=== PATIENT | female | born 1985 | race Caucasian/White ===

== ENCOUNTER 2016-09-16 18:26 | Emergency (ER) | payer MEDICAID ==
[2016-09-16 18:47] VITALS: BP 109/63; PULSE 78; RESP 16; TEMP 98.6; O2SAT 97
--- NOTE | 2016-09-16 19:06 | UCPHY ---
H & P Patient Type: Established HPI/ROS: CHIEF COMPLAINT: Sore throat, congestion. HISTORY OF PRESENT ILLNESS: The patient is a 31-year-old female who presents with one month of rhinorrhea, congestion, and sore throat. Her symptoms have been waxing and waning over the past month but steadily worsening for the last week. She does feel like she has recently had mild shortness of breath but has no asthma history. She denies fever, headache, cough. Her mother was diagnosed with strep and pneumonia 2 weeks ago. She did not get a flu shot this year. She has been treating her symptoms with DayQuil. She is afebrile on presentation. REVIEW OF SYSTEMS: Aside from elements discussed in the HPI, a comprehensive 10-point review of systems was reviewed and is negative. PAST MEDICAL HISTORY: Denies. SOCIAL HISTORY: Nonsmoker. VITAL SIGNS: see nurse's notes. GENERAL: Well-developed, well-nourished, in no acute distress. HEENT: Atraumatic Eyes: PERRL, EOMI, no conjunctival injection. Ears: TM clear bilaterally. Nose: No discharge. Mouth: moist mucous membranes. Pharynx: Mild erythema, no exudates, no swelling, no abscess. Uvula is midline. NECK: Supple, no adenopathy, no meningismus, no tenderness. Negative Kernig's and Brudzinski's. LUNGS: Clear to auscultation bilaterally, no wheezes, rhonchi or rales. CARDIAC: Regular rate and rhythm, no rubs, murmurs or gallops. ABDOMEN: Soft, nontender, bowel sounds normal. BACK: No CVA tenderness. EXTREMITIES: Normal, no edema, FROM. NEURO: Alert and oriented, grossly nonfocal. SKIN: Warm and dry, no rash. PSYCHIATRIC: Normal mentation, no agitation. Smoking Status: Never smoked Constitutional: Initial Vital Signs Temperature (C) 37 C 09/16/16 18:42 Heart Rate 78 09/16/16 18:42 Respiratory Rate 16 09/16/16 18:42 Blood Pressure 109/63 09/16/16 18:42 O2 Sat (%) 97 09/16/16 18:42 O2 Delivery Mode Room Air Allergies/Adverse Reactions: No Known Allergies Allergy (Verified 09/16/16 18:47) Home Medications: Medication Instructions Recorded Ciprofloxacin 09/16/16 Medical Decision Making ED Course/Re-evaluation: A strep swab was obtained and returned from the lab negative. 600mg PO Ibuprofen administered for sore throat. - Data Points Laboratory Results: 09/16/16 09/16/16 Unknown 18:50 Group A Strep Screen NEGATIVE (NEGATIVE) Group A Strep DNA Pending Departure - Departure Disposition: Home, Routine, Self-Care Clinical Impression: Pharyngitis Condition: Good Instructions: Pharyngitis (ED) Additional Instructions: I suspect you have a viral illness. Mainstay of therapy will be to drink plenty of fluids, control your symptoms with [id number] medications, and get plenty of rest. If you have a fever, use Tylenol or ibuprofen. You may take both at the same time if needed. Adult Pain & Fever Control: We recommend Acetaminophen (Tylenol) and Ibuprofen (Motrin, Advil) for pain and fever control. When fever is high or pain severe, both drugs can be used at the same time, but at different intervals. Please note the time differences. Your dose is: Acetaminophen 650mg every 4 to 6 hours Ibuprofen 600mg every 8 hours with food. If you have a runny nose, take an antihistamine. If you are congested, take a decongestant. For your sore throat you can try throat lozenges, throat sprays, or salt water gargles may also be helpful. Return to the Urgent Care or seek care urgently if your symptoms are worsening despite the above treatment, if you develop shortness of breath, if you're unable to drink fluids secondary to throat pain or other issues, or if you have vomiting, diarrhea, or other concerns. Referrals: [place],. [Primary Care Provider] - As per Instructions - PQRS PQRS Measurement: Not applicable. Report Scribed for: Diana Ernst Report Scribed by: Dick Rodrigues Date of Report: 09/16/16 Time of Report: 19:05
[2016-09-16] MEDS ORDERED: IBUPROFEN 600 MG TAB PO ONE (19:20)
== END 2016-09-16 19:34 | disposition home or self-care (01) ==
LOC: CED 18:26
DX: J02.9 Acute pharyngitis, unspecified (principal)
CPT/HCPCS: 87880-PO; G0463-PO